=== PATIENT | male | born 1960 | race Caucasian/White ===

== ENCOUNTER 2024-11-13 11:00 | Outpatient (RCR) | payer MEDICARE, BC, SELFPAY | END 2025-03-13 23:59 | disposition home or self-care (01) | PROVIDERS: Visit Provider Psychiatry & Neurology Neurology | DX: G20.C Parkinsonism, unspecified (principal); Z51.89 Encounter for other specified aftercare | CPT/HCPCS: 97110; 97112; 97116; 97162; 97530 ==